=== PATIENT | male | born 1945 | race Hispanic/Latino ===

== ENCOUNTER → 2017-07-20 | Outpatient (CLI) | payer MEDICARE ==
[~2017-07-20] MED LIST: ATENOLOL50 MG; ENALAPRIL PO; FENOFIBRATE; GLIPIZIDE; METFORMIN PO
--- NOTE | 2017-07-20 13:55 | Diagnostic Imaging Report ---
PROCEDURE:ULTRASOUND GUIDANCE FOR PROCEDURE COMPARISON:None. INDICATIONS: RT THYROID FNA PROCEDURE: See conclusion CONCLUSION: Refer to "BIOPSY THYROID FNA" also from 07/20/2017 for full dictated report. Dictated by: Linus Mccallum M.D. on 07/20/2017 at 13:56 Electronically approved by: Linus Mccallum M.D. on 07/20/2017 at 13:56
--- NOTE | 2017-07-20 13:55 | Diagnostic Imaging Report ---
PROCEDURE:BIOPSY THYROID FNA COMPARISON:Outside sonographic images 05/11/2017. Preprocedure diagnosis: Right thyroid nodule Post procedure diagnosis: Right thyroid nodule Patient Portal Concierge: Linus Mccallum M.D. Estimated blood loss: Minimal Blood products administered: None Specimens: Fine-needle aspiration specimens x3 Implants/graft: None Sedation/anesthesia: None Additional medications: Lidocaine 1% for local anesthesia Complications: None Condition at completion of procedure: Stable Disposition: Discharge home FINDINGS: Informed consent the procedure was obtained from the patient and documented in the medical record after discussion of risks and benefits. The patient was placed in the supine position on the sonographic table. Preliminary sonographic evaluation confirmed presence of a right thyroid nodule as previously described. The right cervical region was prepped and draped in the standard sterile fashion. 1% lidocaine was infiltrated into the skin and subcutaneous tissues for local anesthesia. Then under continuous sonographic guidance, 3 fine needle aspiration specimens were obtained using 25 gauge needles. Specimens were submitted to on-site cytopathology personnel and adequacy was confirmed. At the conclusion of sampling a sterile dressing was applied. The patient tolerated the procedure well without immediate complication.\E\ CONCLUSION: Successful ultrasound-guided fine needle aspiration of a right thyroid nodule as above. Dictated by: Linus Mccallum M.D. on 07/20/2017 at 13:55 Electronically approved by: Linus Mccallum M.D. on 07/20/2017 at 13:55
== END ==
LOC: US 11:09
PROVIDERS: ATTEND Otolaryngology
DX: E04.2 Nontoxic multinodular goiter (principal)
CPT/HCPCS: 10022; 76942; 88112; 88172; 88173; 88305

== ENCOUNTER → 2017-11-09 | Day surgery (SDC) | payer MEDICARE ==
[2017-11-02 15:13] LABS: BASOPHILS # (AUTO) 0.1 (0.0-0.1); BASOPHILS % 0.9 % (0.0-1.0); EOSINOPHILS # (AUTO) 0.1 (0.0-0.4); HEMATOCRIT 42.8 % (38.2-49.6); HEMOGLOBIN 14.3 g/dL (14.0-18.0); LYMPHOCYTES # (AUTO) 2.2 (1.0-3.2); LYMPHOCYTES % 27.8 % (18.0-39.1); MEAN CORPUSCULAR HEMOGLOBIN 32.2 pg (28-32); MEAN CORPUSCULAR HGB CONC 33.4 g/dL (31-35); MEAN CORPUSCULAR VOLUME 96.4 fL (81-99); MONOCYTES # (AUTO) 0.6 (0.2-0.8); MONOCYTES % 7.3 % (4.4-11.3); NEUTROPHILS # (AUTO) 4.9 (2.1-6.9); NEUTROPHILS % 62.7 % (38.7-80.0); PLATELET COUNT 139 x10e3/uL (140-360); RED BLOOD COUNT 4.44 x10e6/uL (4.3-5.7); RED CELL DISTRIBUTION WIDTH 13.4 % (11.7-14.4)
[2017-11-02 15:43] LABS: ANION GAP 14.4 mmol/L (8-16); BLOOD UREA NITROGEN 24 mg/dL (7-26); BUN/CREATININE RATIO 21 (6-25); CALCIUM 9.5 mg/dL (8.4-10.2); CARBON DIOXIDE 26 mmol/L (22-29); CHLORIDE 102 mmol/L (98-107); CREATININE, SERUM 1.14 mg/dL (0.72-1.25); EST GLOMERULAR FILTRATION RATE > 60 ML/MIN (60-); GLUCOSE 225 mg/dL (74-118); POTASSIUM 4.4 mmol/L (3.5-5.1); SODIUM 138 mmol/L (136-145)
--- NOTE | 2017-11-02 16:29 | Diagnostic Imaging Report ---
PROCEDURE: Frontal and lateral views of the chest. COMPARISON: None. INDICATIONS: PRE-OPERATIVE CHEST X-RAY FOR THROAT MASS REMOVAL FINDINGS: Lines/tubes: None. Lungs: The lungs are well inflated. Atelectatic changes in the lingula. Stable patchy opacity projecting in the right lateral lower lung on the frontal view only, likely reflecting a prominent epicardial fat-pad. There is no evidence of consolidation or pulmonary edema. Pleura: There is no pleural effusion or pneumothorax. Eventration of the right hemidiaphragm. Heart and mediastinum: Stable enlargement of the cardiac silhouette. Pulmonary vasculature is normal. Bones: No acute bony abnormality. Degenerative changes in the thoracic spine. IMPRESSION: 1. No acute cardiopulmonary abnormalities. Kvng Gross M.D. Dictated by: Kvng Gross M.D. on 11/02/2017 at 16:33 Electronically approved by: Kvng Gross M.D. on 11/02/2017 at 16:33
[~2017-11-09] MED LIST changes: +DEXAMETHASONE SOD PHOS INJ 4 MG/ML VIAL ONE; +FENTANYL CITRATE/PF 100MCG/2 ML INJ ONE; +LIDOCAINE 1% W/EPINEPHRINE 20 ML VIAL ONE; +LIDOCAINE HCL 2% LOCAL INJ 5 ML SDV VIAL INJ ONE; +MIDAZOLAM HCL 2 MG/2 ML VIAL ONE; +PROPOFOL IV EMULSION 10 MG/ML 20 ML VIAL ONE; +ROCURONIUM BROMIDE 10 MG/ML 5ML VIAL ONE; +SEVOFLURANE INHAL SOLN 250 ML PEN BTL ONE; +SUCCINYLCHOLINE 200 MG/10 ML SYR ONE
== END | disposition home or self-care (01) ==
LOC: OR 05:10
PROVIDERS: ATTEND Otolaryngology
DX: Q89.2 Congenital malformations of other endocrine glands (principal); G47.30 Sleep apnea, unspecified; I10 Essential (primary) hypertension; E11.9 Type 2 diabetes mellitus without complications; K44.9 Diaphragmatic hernia without obstruction or gangrene; N40.0 Benign prostatic hyperplasia without lower urinary tract symptoms; Z91.19 Patient's noncompliance with other medical treatment and regimen; I45.10 Unspecified right bundle-branch block; E78.00 Pure hypercholesterolemia, unspecified; Z01.810 Encounter for preprocedural cardiovascular examination; Z01.812 Encounter for preprocedural laboratory examination; Z01.818 Encounter for other preprocedural examination; Z79.84 Long term (current) use of oral hypoglycemic drugs; Z87.891 Personal history of nicotine dependence; Z53.09 Procedure and treatment not carried out because of other contraindication
CPT/HCPCS: 36415 ×2; 71046; 80048; 82948; 85025; 93005; J1100; J2001; J2250